=== PATIENT | female | born 1995 | race Caucasian/White ===

== ENCOUNTER 2019-03-25 09:22 | Emergency (ER) | payer OTHER, BC ==
[2019-03-25] MEDS ORDERED: methylPREDNISolone Sodium Succinate 125 MG/2 ML SDV IV ONE (09:27)
[2019-03-25] MEDS ORDERED: Sodium Chloride 0.9% 1,000 ML IV ONE (09:28)
[2019-03-25] MEDS ORDERED: Famotidine 20 MG/2 ML SDV IVPUSH ONE (09:32)
[2019-03-25] MEDS ORDERED: diphenhydrAMINE 50 MG/ML SDV IVPUSH ONE (09:42)
[2019-03-25 11:41] VITALS: BP 106/65
--- NOTE | 2019-03-25 11:52 | EDM.PDOC ---
ED HPI GENERAL MEDICAL PROBLEM - General Chief Complaint: Allergic Reaction Time Seen by Provider: 03/25/19 09:23 Source of Information: Reports: Patient History Limitations: Reports: No Limitations - History of Present Illness INITIAL COMMENTS - FREE TEXT/NARRATIVE: Pt. presents to ER with complaints of allergic reaction. She presented to [facility] due to severe rash and wheezing. Pt. was given epinephrine 0.5mg SQ and EMS was summoned. IV access was established by EMS and she was given a duoneb breathing treatment. 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 She has no known history of allergies, anaphylaxis, asthma, etc. She denies any new food or medications that could be causing symptoms. Denies any chest pain. Complains of mild throat irritation. Her primary complaint is that of rash. Denies any nausea or vomiting. No abdominal pain. No fever or chills. Denies any headache. Onset: Today Location: Reports: Generalized Associated Symptoms: Reports: Rash, Shortness of Breath Treatments CATH LAB TECHNOLOGIST: Reports: Breathing Treatments, Other (see below) Other Treatments CATH LAB TECHNOLOGIST: Epinephrine sq - Related Data Allergies Allergy/AdvReac Type Severity Reaction Status Date / Time No Known Allergies Allergy Verified 03/25/19 11:26 Home Meds: Home Meds . [No Known Home Meds] 04/17/15 [History] Past Medical History - Past Health History Medical/Surgical History: Denies Medical/Surgical History Other [employer]ER History: para 1 - Past Surgical History Female Surgical History: Reports: Tubal Ligation Social & Family History - Tobacco Use Smoking Status *Q: Never Smoker - Recreational Drug Use Recreational Drug Use: No ED ROS ALLERGIC REACTION - Review of Systems Review Of Systems: See Below Constitutional: Reports: No Symptoms HEENT: Reports: Throat Pain, Throat Swelling Respiratory: Reports: Shortness of Breath Cardiovascular: Reports: No Symptoms Endocrine: Reports: No Symptoms GI/Abdominal: Reports: No Symptoms : Reports: No Symptoms Musculoskeletal: Reports: No Symptoms Skin: Reports: Pruritis, Rash, Erythema Neurological: Reports: No Symptoms Psychiatric: Reports: No Symptoms Hematologic/Lymphatic: Reports: No Symptoms Immunologic: Reports: Environmental Allergy ED EXAM GENERAL NO PERIP PULSE - Physical Exam Exam: See Below Exam Limited By: No Limitations General Appearance: Alert, WD/WN, No Apparent Distress Eye Exam: Bilateral Eye: EOMI, PERRL Throat/Mouth: Normal Inspection, Normal Lips, Normal Teeth, Normal Gums, Normal Oropharynx, Normal Voice, No Airway Compromise Head: Atraumatic, Normocephalic Neck: Normal Inspection, Supple, Non-Tender, Full Range of Motion Respiratory/Chest: Wheezing Cardiovascular: Normal Peripheral Pulses, Regular Rate, Rhythm, No Edema, No Gallop, No JVD, No Murmur, No Rub GI/Abdominal: Normal Bowel Sounds, Soft, Non-Tender, No Organomegaly, No Distention, No Abnormal Bruit, No Mass (Female) Exam: Deferred Rectal (Female) Exam: Deferred Back Exam: Normal Inspection, Full Range of Motion, NT Extremities: Normal Inspection, Normal Range of Motion, Non-Tender, Normal Capillary Refill, No Pedal Edema Neurological: Alert, Oriented, CN II-XII Intact, Normal Cognition, Normal Gait, Normal Reflexes, No Motor/Sensory Deficits Psychiatric: Normal Affect, Normal Mood Skin Exam: Warm, Dry, Intact, Rash Lymphatic: No Adenopathy Course - Vital Signs Last Recorded V/S: Last Vital Signs Temp 36.6 C 03/25/19 09:22 Pulse 85 03/25/19 10:45 Resp 16 03/25/19 10:45 BP 106/65 03/25/19 10:45 Pulse Ox 98 03/25/19 10:45 - Orders/Labs/Meds Meds: Medications Discontinued Medications Generic Name Dose Route Start Last Admin Trade Name Freq PRN Reason Stop Dose Admin Diphenhydramine HCl 50 mg 03/25/19 09:42 03/25/19 09:48 Benadryl IVPUSH 03/25/19 09:43 50 mg ONETIME ONE Administration Famotidine 20 mg 03/25/19 09:32 03/25/19 09:43 Pepcid IVPUSH 03/25/19 09:33 20 mg ONETIME ONE Administration Sodium Chloride 1,000 mls @ 1,000 mls/hr 03/25/19 09:28 03/25/19 09:40 Normal Saline IV 03/25/19 10:27 1,000 mls/hr .BOLUS ONE Administration Methylprednisolone Sodium Succinate 125 mg 03/25/19 09:27 03/25/19 09:49 Solu-Medrol IV 05/07/19 09:28 125 mg ONETIME ONE Administration Departure - Departure Time of Disposition: 11:00 Disposition: Home, Self-Care 01 Condition: Good Clinical Impression: Allergic reaction - Discharge Information Instructions: Anaphylactic Reaction, Adult, [id number] Referrals: Oksana Samaniego DO [Primary Care Provider] - Forms: ED Department Discharge Additional Instructions: Prednisone 40mg once daily until gone. Benadryl 50mg orally every 4-6 hours as needed for itching/rash/throat irritation/congestion. I am prescribing you an epi pen to have on hand in the event you come in contact with whatever caused the reaction. If the symptoms get worse today, come to the ER and we will given you another shot a needed. I want you to have the epi pen in the event you have a reaction and can't get to medical help. Recheck in clinic in 10 days. - Assessment/Plan Plan: Advised to keep a food diary in the event that this reaction was caused by something she consumed. Prednisone 40mg once daily until gone. Benadryl 50mg orally every 4-6 hours as needed for itching/rash/throat irritation/congestion. I am prescribing you an epi pen to have on hand in the event you come in contact with whatever caused the reaction. If the symptoms get worse today, come to the ER and we will given you another shot a needed. I want you to have the epi pen in the event you have a reaction and can't get to medical help. Recheck in clinic in 10 days.
== END 2019-03-25 10:55 | disposition home or self-care (01) ==
LOC: VM.ED 09:22
DX: T78.40XA Allergy, unspecified, initial encounter (principal)
CPT/HCPCS: 96361; 96374; 96375; 99285; J1200; J2930; J3490; J7030

== ENCOUNTER 2023-03-14 03:55 | Emergency (ER) | payer BC ==
[2023-03-14 04:24] VITALS: PULSE 69
[2023-03-14 04:41] LABS: CHLORIDE,CL 105 mmol/L (98-107); SODIUM,NA 140 mmol/L (136-145)
[2023-03-14 04:42] LABS: ANION GAP 12.9 mmol/L (5-15); ESTIMATED GFR 103 mL/min (>=60)
[2023-03-14 04:46] VITALS: BP 100/69
== END 2023-03-14 05:05 | disposition home or self-care (01) ==
LOC: VM.ED 03:55
DX: R07.89 Other chest pain (principal)
CPT/HCPCS: 36415; 71046; 80053; 82550; 83690; 84484; 85025; 86140; 93005; 93010; 99284; 99285

== ENCOUNTER 2023-06-27 13:30 | Emergency (ER) | payer BC, OTHER ==
[2023-06-27 13:40] VITALS: BP 127/81; PULSE 73
== END 2023-06-27 14:48 | disposition home or self-care (01) ==
LOC: VM.ED 13:30
DX: S62.524A Nondisplaced fracture of distal phalanx of right thumb, initial encounter for closed fracture (principal); S60.011A Contusion of right thumb without damage to nail, initial encounter; W23.0XXA Caught, crushed, jammed, or pinched between moving objects, initial encounter; Y99.0 Civilian activity done for income or pay
CPT/HCPCS: 73140-F5; 99283

== ENCOUNTER 2023-09-13 08:31 | Emergency (ER) | payer OTHER ==
[2023-09-13 08:48] VITALS: PULSE 58
[2023-09-13] MEDS: Diphtheria,Pertussis(Acell),Tetanus Vaccine 0.5 ML Syringe IM ONE (09:05)
[2023-09-13 09:24] VITALS: BP 110/55
== END 2023-09-13 09:10 | disposition home or self-care (01) ==
LOC: VM.ED 08:31
DX: S01.311A Laceration without foreign body of right ear, initial encounter (principal); Z23 Encounter for immunization; W31.9XXA Contact with unspecified machinery, initial encounter; Y99.0 Civilian activity done for income or pay
CPT/HCPCS: 12011; 90471; 90715; 99282-25

== ENCOUNTER 2023-10-31 17:13 | Emergency (ER) | payer BC, OTHER ==
[2023-10-31] MEDS ORDERED: methylPREDNISolone Sodium Succinate 125 MG/2 ML SDV IM ONE (17:14)
[2023-10-31] MEDS ORDERED: Famotidine 20 MG Tab PO ONE (17:15)
[2023-10-31 18:28] VITALS: BP 117/78; PULSE 82
== END 2023-10-31 18:20 | disposition home or self-care (01) ==
LOC: VM.ED 17:13
DX: T78.40XA Allergy, unspecified, initial encounter (principal)
CPT/HCPCS: 96372; 99284; A9270-GY; J2930

== ENCOUNTER 2025-03-05 19:57 | Emergency (ER) | payer OTHER ==
[2025-03-05 20:43] VITALS: BP 113/64; PULSE 81
== END 2025-03-05 20:54 | disposition home or self-care (01) ==
LOC: VM.ED 19:57
DX: N99.89 Other postprocedural complications and disorders of genitourinary system (principal); R33.9 Retention of urine, unspecified
CPT/HCPCS: 99283